=== PATIENT | male | born 1965 | race African-American/Black ===

== ENCOUNTER 2017-03-07 13:16 | Emergency (ER) | payer MEDICAID ==
[~2017-03-07] VITALS: Ht 170.2 cm; Wt 65.0 kg
[~2017-03-07 13:16] MED LIST: NONE REPORTED
[2017-03-07 13:20] VITALS: BP 132/85
== END 2017-03-07 14:32 | disposition left against medical advice (07) ==
LOC: ER 13:44
DX: Z53.21 Procedure and treatment not carried out due to patient leaving prior to being seen by health care provider (principal)

== ENCOUNTER 2017-05-22 00:25 | Emergency (ER) | payer MEDICAID ==
[~2017-05-22] VITALS: Ht 175.3 cm; Wt 75.0 kg
[2017-05-22 04:29] VITALS: BP 125/79
== END 2017-05-22 04:30 | disposition home or self-care (01) ==
LOC: ER 00:25
DX: R60.0 Localized edema (principal); F17.200 Nicotine dependence, unspecified, uncomplicated; F12.10 Cannabis abuse, uncomplicated; F16.10 Hallucinogen abuse, uncomplicated; Z87.81 Personal history of (healed) traumatic fracture
CPT/HCPCS: 99283; Z7610

== ENCOUNTER 2017-08-15 00:37 | Emergency (ER) | payer MEDICAID ==
[~2017-08-15] VITALS: Ht 175.3 cm; Wt 68.1 kg
[2017-08-15 06:25] VITALS: BP 113/71
== END 2017-08-15 06:30 | disposition home or self-care (01) ==
LOC: ER 01:00
DX: R10.9 Unspecified abdominal pain (principal); F16.10 Hallucinogen abuse, uncomplicated; F17.200 Nicotine dependence, unspecified, uncomplicated
CPT/HCPCS: 99283

== ENCOUNTER 2018-01-18 23:11 | Emergency (ER) | payer MEDICAID ==
[~2018-01-18] VITALS: Ht 175.3 cm; Wt 80.0 kg
[2018-01-19] MEDS ORDERED: SODIUM CHLORIDE 0.9% 1,000 ML IV ONE (03:43)
[2018-01-19 04:45] LABS: BASOPHILS % 1.1 % (0.0-2.0); HEMATOCRIT. 38.3 % (42.0-52.0); LYMPHOCYTES % 37.5 % (20.0-50.0); MEAN CORPUSCULAR HEMOGLOBIN 30.3 pg (28.0-32.0); MEAN CORPUSCULAR VOLUME 89.4 fL (80.0-94.0); MONOCYTES % 8.4 % (2.0-8.0); PLATELET 354 x1000/uL (130-400); RED BLOOD CELL COUNT 4.28 mill/uL (4.7-6.1); RED CELL DISTRIBUTION WIDTH 13.7 % (11.6-14.6)
[2018-01-19 04:52] LABS: CHLORIDE 107 mEq/L (98-107)
[2018-01-19 04:56] LABS: ETHANOL BLOOD 10 mg/dL
[2018-01-19 06:19] LABS: CLARITY URINE CLEAR (CLEAR); COLOR URINE YELLOW (YELLOW); KETONES URINE NEGATIVE (NEGATIVE); LEUKOCYTE ESTERASE URINE NEGATIVE (NEGATIVE); NITRITE URINE NEGATIVE (NEGATIVE); OCCULT BLOOD URINE NEGATIVE (NEGATIVE); PROTEIN URINE NEGATIVE (NEGATIVE); SPECIFIC GRAVITY URINE 1.006 (1.005-1.030); UROBILINOGEN URINE 0.2 E.U./dL (0.2-1.0)
[2018-01-19 06:43] LABS: *AMPHETAMINES SCREEN URINE NEGATIVE (NEGATIVE); *BARBITURATES SCREEN URINE NEGATIVE (NEGATIVE); *BENZODIAZEPINES SCREEN URINE NEGATIVE (NEGATIVE); *COCAINE SCREEN URINE NEGATIVE (NEGATIVE)
[2018-01-19 06:44] LABS: CANNABINOID URINE SCREEN PRESUMTIVE POSITIVE (NEGATIVE); METHADONE URINE SCREEN NEGATIVE (NEGATIVE); OPIATES URINE SCREEN NEGATIVE (NEGATIVE); PHENCYCLIDINE URINE SCREEN PRESUMTIVE POSITIVE (NEGATIVE)
[2018-01-19 11:23] VITALS: BP 124/79
== END 2018-01-19 11:24 | disposition home or self-care (01) ==
LOC: ER 23:11
DX: T40.991A Poisoning by other psychodysleptics [hallucinogens], accidental (unintentional), initial encounter (principal); T40.7X1A Poisoning by cannabis (derivatives), accidental (unintentional), initial encounter; G92 Toxic encephalopathy; F10.229 Alcohol dependence with intoxication, unspecified; Y90.0 Blood alcohol level of less than 20 mg/100 ml; Y92.488 Other paved roadways as the place of occurrence of the external cause
CPT/HCPCS: 36415; 80053; 80305; 80307; 80329; 81003; 82962; 83690; 85025; 99284; G0482; J7030

== ENCOUNTER 2018-01-23 03:19 | Emergency (ER) | payer MEDICAID ==
[~2018-01-23] VITALS: Ht 167.6 cm; Wt 68.0 kg
[2018-01-23] MEDS ORDERED: SODIUM CHLORIDE 0.9% 1,000 ML IV ONE (07:26)
[2018-01-23] MEDS ORDERED: TETANUS, DIPHTHERIA, PERTUSSIS VAC/PF 0.5ML (>7YR OLD) IM ONE (07:30)
[2018-01-23] MEDS ORDERED: BACITRACIN ZINC OINT UDPKT TOP ONE (07:30)
[2018-01-23] MEDS ORDERED: LIDOCAINE HCL/PF 1% 10 MG/ML 5ML VIAL IJ ONE (07:30)
[2018-01-23] MEDS ORDERED: ACETAMINOPHEN 325MG TABLET PO ONE (07:30)
[2018-01-23 09:30] VITALS: BP 122/89
== END 2018-01-23 09:54 | disposition left against medical advice (07) ==
LOC: ER 03:19
DX: S01.112A Laceration without foreign body of left eyelid and periocular area, initial encounter (principal); S00.83XA Contusion of other part of head, initial encounter; F10.20 Alcohol dependence, uncomplicated; Y90.9 Presence of alcohol in blood, level not specified; F99 Mental disorder, not otherwise specified; W01.0XXA Fall on same level from slipping, tripping and stumbling without subsequent striking against object, initial encounter; Y93.89 Activity, other specified; Y92.488 Other paved roadways as the place of occurrence of the external cause
CPT/HCPCS: 12011; 70450; 70486; 90471; 90715; 99285; J3490; J7030; Z7610

== ENCOUNTER 2018-05-11 16:19 | Emergency (ER) | payer SELFPAY ==
[~2018-05-11] VITALS: Ht 170.2 cm; Wt 90.0 kg
[2018-05-11 16:33] VITALS: BP 127/83
[2018-05-11] MEDS ORDERED: ONDANSETRON HCL 4MG/2ML INJ IV STA (18:05)
[2018-05-11] MEDS ORDERED: SODIUM CHLORIDE 0.9% 1,000 ML IV ONE (18:05)
[2018-05-11 18:54] LABS: BASOPHILS % 1.3 % (0.0-2.0); EOSINOPHILS % 5.1 % (0.0-5.0); HEMATOCRIT. 40.4 % (42.0-52.0); HEMOGLOBIN. 13.5 g/dL (14.0-18.0); LYMPHOCYTES % 30.4 % (20.0-50.0); MEAN CORPUSCULAR HEMOGLOBIN 30.5 pg (28.0-32.0); MEAN PLATELET VOLUME 8.5 fl (7.4-10.4); MONOCYTES % 9.8 % (2.0-8.0); NEUTROPHILS % 53.4 % (40.0-76.0); PLATELET 392 x1000/uL (130-400); RED BLOOD CELL COUNT 4.43 mill/uL (4.7-6.1); RED CELL DISTRIBUTION WIDTH 14.4 % (11.6-14.6)
[2018-05-11 18:59] LABS: CHLORIDE 107 mEq/L (98-107)
[2018-05-11 19:04] LABS: ETHANOL BLOOD < 10 mg/dL
[2018-05-11 19:23] LABS: CLARITY URINE CLEAR (CLEAR); COLOR URINE YELLOW (YELLOW); KETONES URINE NEGATIVE (NEGATIVE); LEUKOCYTE ESTERASE URINE NEGATIVE (NEGATIVE); NITRITE URINE NEGATIVE (NEGATIVE); OCCULT BLOOD URINE NEGATIVE (NEGATIVE); PROTEIN URINE NEGATIVE (NEGATIVE); SPECIFIC GRAVITY URINE 1.002 (1.005-1.030); UROBILINOGEN URINE 0.2 E.U./dL (0.2-1.0)
[2018-05-11 19:45] LABS: *AMPHETAMINES SCREEN URINE NEGATIVE (NEGATIVE); *BARBITURATES SCREEN URINE NEGATIVE (NEGATIVE); *COCAINE SCREEN URINE NEGATIVE (NEGATIVE); METHADONE URINE SCREEN NEGATIVE (NEGATIVE); OPIATES URINE SCREEN NEGATIVE (NEGATIVE); PHENCYCLIDINE URINE SCREEN PRESUMTIVE POSITIVE (NEGATIVE)
[2018-05-11 19:46] LABS: *BENZODIAZEPINES SCREEN URINE NEGATIVE (NEGATIVE); CANNABINOID URINE SCREEN PRESUMTIVE POSITIVE (NEGATIVE)
== END 2018-05-11 19:01 | disposition home or self-care (01) ==
LOC: ER 16:19
DX: R11.10 Vomiting, unspecified (principal); R05 Cough; F10.10 Alcohol abuse, uncomplicated; Y90.0 Blood alcohol level of less than 20 mg/100 ml; Z59.0 Homelessness
CPT/HCPCS: 36415; 80053; 80305; 81003; 85025; 99283; G0482; J7030

== ENCOUNTER 2018-06-07 14:43 | Emergency (ER) | payer SELFPAY | END 2018-06-07 15:36 | disposition left against medical advice (07) | LOC: ER 14:43 | DX: Z53.21 Procedure and treatment not carried out due to patient leaving prior to being seen by health care provider (principal) ==

== ENCOUNTER 2019-01-08 18:01 | Emergency (ER) | payer SELFPAY ==
[~2019-01-08] VITALS: Ht 180.3 cm; Wt 82.0 kg
[2019-01-08] MEDS ORDERED: SODIUM CHLORIDE 0.9% 1,000 ML IV ONE (18:45)
[2019-01-08 19:23] LABS: BASOPHILS % 0.7 % (0.0-2.0); EOSINOPHILS % 2.7 % (0.0-5.0); HEMATOCRIT. 41.7 % (42.0-52.0); HEMOGLOBIN. 14.3 g/dL (14.0-18.0); LYMPHOCYTES % 37.4 % (20.0-50.0); MEAN CORPUSCULAR HEMOGLOBIN 31.4 pg (28.0-32.0); MEAN CORPUSCULAR VOLUME 91.4 fL (80.0-94.0); MEAN PLATELET VOLUME 8.3 fl (7.4-10.4); MONOCYTES % 7.5 % (2.0-8.0); NEUTROPHILS % 51.7 % (40.0-76.0); PLATELET 328 x1000/uL (130-400); RED BLOOD CELL COUNT 4.57 mill/uL (4.7-6.1)
[2019-01-08 19:30] LABS: CHLORIDE 109 mEq/L (98-107)
[2019-01-08 19:36] LABS: ETHANOL BLOOD 90 mg/dL
[2019-01-08 21:30] VITALS: BP 124/74
== END 2019-01-08 21:30 | disposition home or self-care (01) ==
LOC: ER 18:17
DX: F10.129 Alcohol abuse with intoxication, unspecified (principal); Y90.4 Blood alcohol level of 80-99 mg/100 ml; F16.10 Hallucinogen abuse, uncomplicated
CPT/HCPCS: 36415; 80048; 80320; 85025; 96360; 99283; J7030; G0480

== ENCOUNTER 2019-04-01 15:58 | Emergency (ER) | payer SELFPAY ==
[~2019-04-01] VITALS: Ht 170.2 cm; Wt 64.0 kg
[2019-04-01] MEDS ORDERED: ONDANSETRON HCL 4MG/2ML INJ IV ONE (16:15)
[2019-04-01] MEDS ORDERED: FOLIC ACID 1 MG, THIAMINE HCL 100 MG, MVI, ADULT NO.1 10 ML in DEXTROSE 5% WATER 1,000 ML IV ONE ×4 (16:15)
[2019-04-01] MEDS ORDERED: LORAZEPAM 2MG/ML CPJ IM ONE (17:00)
[2019-04-01 17:01] LABS: BASOPHILS % 1.3 % (0.0-2.0); EOSINOPHILS % 4.7 % (0.0-5.0); HEMATOCRIT. 40.3 % (42.0-52.0); HEMOGLOBIN. 13.8 g/dL (14.0-18.0); LYMPHOCYTES % 42.2 % (20.0-50.0); MEAN CORPUSCULAR HEMOGLOBIN 30.9 pg (28.0-32.0); MEAN CORPUSCULAR VOLUME 90.2 fL (80.0-94.0); MEAN PLATELET VOLUME 8.5 fl (7.4-10.4); MONOCYTES % 6.7 % (2.0-8.0); NEUTROPHILS % 45.1 % (40.0-76.0); PLATELET 410 x1000/uL (130-400); RED BLOOD CELL COUNT 4.47 mill/uL (4.7-6.1); RED CELL DISTRIBUTION WIDTH 13.8 % (11.6-14.6)
[2019-04-01 17:06] LABS: CHLORIDE 108 mEq/L (98-107)
[2019-04-01 17:15] LABS: ETHANOL BLOOD 144 mg/dL
[2019-04-01 17:26] LABS: CLARITY URINE CLEAR (CLEAR); COLOR URINE YELLOW (YELLOW); KETONES URINE NEGATIVE (NEGATIVE); LEUKOCYTE ESTERASE URINE NEGATIVE (NEGATIVE); NITRITE URINE NEGATIVE (NEGATIVE); OCCULT BLOOD URINE NEGATIVE (NEGATIVE); PH URINE 5.5 (4.5-8.0); PROTEIN URINE NEGATIVE (NEGATIVE); SPECIFIC GRAVITY URINE 1.003 (1.005-1.030); UROBILINOGEN URINE 0.2 E.U./dL (0.2-1.0)
[2019-04-01 18:51] LABS: *AMPHETAMINES SCREEN URINE NEGATIVE (NEGATIVE); *BARBITURATES SCREEN URINE NEGATIVE (NEGATIVE)
[2019-04-01 18:52] LABS: *BENZODIAZEPINES SCREEN URINE NEGATIVE (NEGATIVE); *COCAINE SCREEN URINE NEGATIVE (NEGATIVE); CANNABINOID URINE SCREEN NEGATIVE (NEGATIVE); METHADONE URINE SCREEN NEGATIVE (NEGATIVE); OPIATES URINE SCREEN NEGATIVE (NEGATIVE); PHENCYCLIDINE URINE SCREEN PRESUMTIVE POSITIVE (NEGATIVE)
[2019-04-01 20:15] VITALS: BP 125/84
== END 2019-04-01 20:19 | disposition home or self-care (01) ==
LOC: ER 15:58
DX: G92 Toxic encephalopathy (principal); F10.20 Alcohol dependence, uncomplicated; F16.10 Hallucinogen abuse, uncomplicated; E16.2 Hypoglycemia, unspecified; Y90.6 Blood alcohol level of 120-199 mg/100 ml
CPT/HCPCS: 36415; 70450; 71045; 80053; 80305; 80307; 80320; 80329; 81003; 82962; 84484; 85025; 93005; 96365; 96372; 96375; 99284; J2060; J2405; J3411; J3490; J7070; G0480

== ENCOUNTER 2019-06-26 07:56 | Emergency (ER) | payer SELFPAY ==
[~2019-06-26] VITALS: Ht 175.3 cm; Wt 64.0 kg
[2019-06-26 09:28] LABS: BASOPHILS % 0.4 % (0.0-2.0); EOSINOPHILS % 1.2 % (0.0-5.0); HEMATOCRIT. 40.7 % (42.0-52.0); HEMOGLOBIN. 14.4 g/dL (14.0-18.0); LYMPHOCYTES % 10.7 % (20.0-50.0); MEAN CORPUSCULAR HEMOGLOBIN 31.8 pg (28.0-32.0); MEAN CORPUSCULAR VOLUME 90.1 fL (80.0-94.0); MEAN PLATELET VOLUME 8.2 fl (7.4-10.4); MONOCYTES % 6.3 % (2.0-8.0); NEUTROPHILS % 81.4 % (40.0-76.0); PLATELET 315 x1000/uL (130-400); RED BLOOD CELL COUNT 4.52 mill/uL (4.7-6.1); RED CELL DISTRIBUTION WIDTH 13.9 % (11.6-14.6)
[2019-06-26 09:37] LABS: CHLORIDE 104 mEq/L (98-107)
[2019-06-26 09:41] LABS: ETHANOL BLOOD < 10 mg/dL
[2019-06-26 14:03] VITALS: BP 115/84
== END 2019-06-26 14:15 | disposition home or self-care (01) ==
LOC: ER 07:56
DX: R51 Headache (principal); I10 Essential (primary) hypertension; F16.10 Hallucinogen abuse, uncomplicated; W18.30XA Fall on same level, unspecified, initial encounter; Y93.89 Activity, other specified; Y92.89 Other specified places as the place of occurrence of the external cause; Y99.8 Other external cause status
CPT/HCPCS: 36415; 80053; 80320; 82962; 85025; 99284; G0480

== ENCOUNTER 2019-06-27 12:42 | Emergency (ER) | payer SELFPAY ==
[~2019-06-27] VITALS: Ht 182.9 cm; Wt 73.0 kg
[2019-06-27] MEDS ORDERED: HALOPERIDOL LACTATE 5MG/ML VIAL IM STA (13:14)
[2019-06-27 13:51] LABS: HEMATOCRIT. 38.4 % (42.0-52.0); HEMOGLOBIN. 13.3 g/dL (14.0-18.0); MEAN CORPUSCULAR HEMOGLOBIN 31.4 pg (28.0-32.0); MEAN CORPUSCULAR VOLUME 90.3 fL (80.0-94.0); RED BLOOD CELL COUNT 4.25 mill/uL (4.7-6.1); RED CELL DISTRIBUTION WIDTH 13.9 % (11.6-14.6)
[2019-06-27 13:58] LABS: CHLORIDE 108 mEq/L (98-107)
[2019-06-27 14:03] LABS: ETHANOL BLOOD < 10 mg/dL
[2019-06-27 14:26] LABS: PLATELET ESTIMATE NORMAL
[2019-06-27 14:27] LABS: PLATELET 250 x1000/uL (130-400)
[2019-06-27 14:28] LABS: MEAN PLATELET VOLUME 9.6 fl (7.4-10.4)
[2019-06-27 15:00] LABS: CLARITY URINE CLEAR (CLEAR); COLOR URINE DARK YELLOW (YELLOW); KETONES URINE TRACE (NEGATIVE); LEUKOCYTE ESTERASE URINE 1+ (NEGATIVE); NITRITE URINE NEGATIVE (NEGATIVE); OCCULT BLOOD URINE NEGATIVE (NEGATIVE); PH URINE 5.5 (4.5-8.0); PROTEIN URINE TRACE (NEGATIVE); SPECIFIC GRAVITY URINE 1.026 (1.005-1.030)
[2019-06-27 15:38] LABS: *AMPHETAMINES SCREEN URINE NEGATIVE (NEGATIVE); *BARBITURATES SCREEN URINE NEGATIVE (NEGATIVE); *BENZODIAZEPINES SCREEN URINE PRESUMTIVE POSITIVE (NEGATIVE); *COCAINE SCREEN URINE NEGATIVE (NEGATIVE)
[2019-06-27 15:39] LABS: CANNABINOID URINE SCREEN PRESUMTIVE POSITIVE (NEGATIVE); METHADONE URINE SCREEN NEGATIVE (NEGATIVE); OPIATES URINE SCREEN NEGATIVE (NEGATIVE); PHENCYCLIDINE URINE SCREEN PRESUMTIVE POSITIVE (NEGATIVE)
[2019-06-28 09:46] VITALS: BP 120/75
== END 2019-06-28 09:49 | disposition home or self-care (01) ==
LOC: ER 12:42
DX: T40.991A Poisoning by other psychodysleptics [hallucinogens], accidental (unintentional), initial encounter (principal); F23 Brief psychotic disorder; I10 Essential (primary) hypertension; F12.10 Cannabis abuse, uncomplicated; F17.210 Nicotine dependence, cigarettes, uncomplicated; Y92.018 Other place in single-family (private) house as the place of occurrence of the external cause
CPT/HCPCS: 36415; 70450; 80053; 80305; 80307; 80320; 80329; 81003; 82962; 85025; 99285; J1630; G0480

== ENCOUNTER 2019-07-16 02:20 | Emergency (ER) | payer SELFPAY ==
[~2019-07-16] VITALS: Ht 167.6 cm; Wt 75.0 kg
[2019-07-16 07:30] VITALS: BP 135/83
== END 2019-07-16 09:04 | disposition left against medical advice (07) ==
LOC: ER 02:20
DX: F10.129 Alcohol abuse with intoxication, unspecified (principal); F16.10 Hallucinogen abuse, uncomplicated; Y90.9 Presence of alcohol in blood, level not specified; Z59.0 Homelessness
CPT/HCPCS: 99283

== ENCOUNTER 2019-07-17 10:35 | Emergency (ER) | payer SELFPAY ==
[~2019-07-17] VITALS: Ht 167.6 cm; Wt 71.0 kg
[2019-07-17] MEDS ORDERED: ACETAMINOPHEN 325MG TABLET PO STA (11:09)
[2019-07-17 12:45] VITALS: BP 128/78
== END 2019-07-17 13:30 | disposition home or self-care (01) ==
LOC: ER 10:52
DX: S09.90XA Unspecified injury of head, initial encounter (principal); E11.9 Type 2 diabetes mellitus without complications; V19.9XXA Pedal cyclist (driver) (passenger) injured in unspecified traffic accident, initial encounter; Y93.89 Activity, other specified; Y92.89 Other specified places as the place of occurrence of the external cause; Y99.8 Other external cause status
CPT/HCPCS: 99284

== ENCOUNTER 2019-07-20 21:26 | Emergency (ER) | payer OTHER ==
[~2019-07-20] VITALS: Ht 167.6 cm; Wt 77.0 kg
[2019-07-20] MEDS ORDERED: TETANUS, DIPHTHERIA, PERTUSSIS VAC/PF 0.5ML (>7YR OLD) IM ONE (23:15)
[2019-07-20 23:22] VITALS: BP 130/90
[2019-07-20 23:25] LABS: CHLORIDE 107 mEq/L (98-107)
[2019-07-20 23:27] LABS: HEMATOCRIT 39.1 % (42.0-52.0); HEMOGLOBIN 13.5 g/dL (14.0-18.0); MEAN CORPUSCULAR HEMOGLOBIN 31.8 pg (28.0-32.0); PLATELET 358 x1000/uL (130-400); RED BLOOD CELL COUNT 4.24 mill/uL (4.7-6.1); RED CELL DISTRIBUTION WIDTH 14.2 % (11.6-14.6)
[2019-07-20 23:28] LABS: *AMPHETAMINES SCREEN URINE NEGATIVE (NEGATIVE); *BARBITURATES SCREEN URINE NEGATIVE (NEGATIVE); *BENZODIAZEPINES SCREEN URINE NEGATIVE (NEGATIVE); *COCAINE SCREEN URINE NEGATIVE (NEGATIVE); ETHANOL BLOOD 100 mg/dL; METHADONE URINE SCREEN NEGATIVE (NEGATIVE)
[2019-07-20 23:29] LABS: CANNABINOID URINE SCREEN NEGATIVE (NEGATIVE); OPIATES URINE SCREEN NEGATIVE (NEGATIVE); PHENCYCLIDINE URINE SCREEN PRESUMTIVE POSITIVE (NEGATIVE)
== END 2019-07-21 01:28 | disposition home or self-care (01) ==
LOC: ER 21:26
DX: S00.83XA Contusion of other part of head, initial encounter (principal); S00.212A Abrasion of left eyelid and periocular area, initial encounter; E11.9 Type 2 diabetes mellitus without complications; F16.10 Hallucinogen abuse, uncomplicated; F10.10 Alcohol abuse, uncomplicated; F17.210 Nicotine dependence, cigarettes, uncomplicated; Y90.9 Presence of alcohol in blood, level not specified; W01.0XXA Fall on same level from slipping, tripping and stumbling without subsequent striking against object, initial encounter; Y93.89 Activity, other specified; Y92.488 Other paved roadways as the place of occurrence of the external cause
CPT/HCPCS: 36415; 80053; 80305; 80320; 85027; 90715; 99284; G0480

== ENCOUNTER 2019-07-26 21:55 | Emergency (ER) | payer SELFPAY ==
[~2019-07-26] VITALS: Ht 172.7 cm; Wt 77.0 kg
[2019-07-27] MEDS ORDERED: METOCLOPRAMIDE HCL 10MG/2ML VIAL IV ONE (01:30)
[2019-07-27] MEDS ORDERED: DICYCLOMINE HCL 10MG/ML 2ML AMP IM ONE (01:30)
[2019-07-27 10:24] VITALS: BP 130/80
== END 2019-07-27 10:25 | disposition home or self-care (01) ==
LOC: ER 21:55
DX: S00.01XA Abrasion of scalp, initial encounter (principal); M25.552 Pain in left hip; E11.9 Type 2 diabetes mellitus without complications; I10 Essential (primary) hypertension; F10.10 Alcohol abuse, uncomplicated; W18.30XA Fall on same level, unspecified, initial encounter; Y93.89 Activity, other specified; Y92.89 Other specified places as the place of occurrence of the external cause; Y99.8 Other external cause status; Y90.9 Presence of alcohol in blood, level not specified
CPT/HCPCS: 73502; 99284

== ENCOUNTER 2019-08-02 16:06 | Emergency (ER) | payer MEDICAID, OTHER ==
[~2019-08-02] VITALS: Ht 165.1 cm; Wt 65.0 kg
[2019-08-04] MEDS ORDERED: ACETAMINOPHEN 325MG TABLET PO ONE (04:15)
[2019-08-05 11:30] VITALS: BP 118/70
== END 2019-08-05 14:00 | disposition left against medical advice (07) ==
LOC: ER 16:06
DX: Z59.0 Homelessness (principal); F15.10 Other stimulant abuse, uncomplicated; F16.10 Hallucinogen abuse, uncomplicated; I10 Essential (primary) hypertension; E11.9 Type 2 diabetes mellitus without complications
CPT/HCPCS: 99285

== ENCOUNTER 2019-08-26 13:31 | Emergency (ER) | payer MEDICAID ==
[~2019-08-26] VITALS: Ht 175.3 cm; Wt 70.0 kg
[2019-08-26] MEDS ORDERED: SODIUM CHLORIDE 0.9% 1,000 ML IV ONE (13:59)
[2019-08-26 14:40] LABS: BASOPHILS % 1.3 % (0.0-2.0); EOSINOPHILS % 3.7 % (0.0-5.0); HEMATOCRIT. 24.5 % (42.0-52.0); HEMOGLOBIN. 7.6 g/dL (14.0-18.0); LYMPHOCYTES % 34.1 % (20.0-50.0); MEAN CORPUSCULAR HEMOGLOBIN 29.6 pg (28.0-32.0); MEAN CORPUSCULAR VOLUME 95.1 fL (80.0-94.0); MONOCYTES % 5.7 % (2.0-8.0); NEUTROPHILS % 55.2 % (40.0-76.0); PLATELET 245 x1000/uL (130-400); RED BLOOD CELL COUNT 2.58 mill/uL (4.7-6.1); RED CELL DISTRIBUTION WIDTH 14.1 % (11.6-14.6)
[2019-08-26 16:44] LABS: CHLORIDE 110 mEq/L (98-107)
[2019-08-26 16:49] LABS: ETHANOL BLOOD 10 mg/dL
[2019-08-26 17:14] LABS: CLARITY URINE CLEAR (CLEAR); COLOR URINE YELLOW (YELLOW); KETONES URINE NEGATIVE (NEGATIVE); LEUKOCYTE ESTERASE URINE NEGATIVE (NEGATIVE); NITRITE URINE NEGATIVE (NEGATIVE); OCCULT BLOOD URINE NEGATIVE (NEGATIVE); PROTEIN URINE NEGATIVE (NEGATIVE); SPECIFIC GRAVITY URINE 1.005 (1.005-1.030); UROBILINOGEN URINE 0.2 E.U./dL (0.2-1.0)
[2019-08-26 17:23] LABS: *AMPHETAMINES SCREEN URINE NEGATIVE (NEGATIVE); *BARBITURATES SCREEN URINE NEGATIVE (NEGATIVE); *BENZODIAZEPINES SCREEN URINE NEGATIVE (NEGATIVE); *COCAINE SCREEN URINE NEGATIVE (NEGATIVE); METHADONE URINE SCREEN NEGATIVE (NEGATIVE); OPIATES URINE SCREEN NEGATIVE (NEGATIVE); PHENCYCLIDINE URINE SCREEN PRESUMTIVE POSITIVE (NEGATIVE)
[2019-08-26 17:24] LABS: CANNABINOID URINE SCREEN NEGATIVE (NEGATIVE)
[2019-08-26 18:21] VITALS: BP 135/80
[2019-08-26] MEDS ORDERED: FOLIC ACID 1 MG, THIAMINE HCL 100 MG, MVI, ADULT NO.1 10 ML in DEXTROSE 5% WATER 1,000 ML IV SCH ×4 (18:30)
[2019-08-26] MEDS ORDERED: ACETAMINOPHEN 325MG TABLET PO PRN (18:30)
[2019-08-26] MEDS ORDERED: LORAZEPAM 2MG/ML CPJ IV PRN (18:30)
[2019-08-26] MEDS ORDERED: ONDANSETRON HCL 4MG/2ML INJ IV PRN (18:30)
[2019-08-26 18:49] LABS: TOTAL IRON BINDING CAPACITY 236 ug/dL (250-450)
== END 2019-08-26 18:44 | disposition left against medical advice (07) ==
LOC: ER 13:42 → EDBEDREQTM 17:08 → EDBEDREQ 17:08 → ER 18:44 → CANBEDREQ 19:45
DX: G93.40 Encephalopathy, unspecified (principal); R41.82 Altered mental status, unspecified; E11.9 Type 2 diabetes mellitus without complications; I10 Essential (primary) hypertension
CPT/HCPCS: 36415; 70450; 71045; 80053; 80305; 80307; 80320; 80329; 81003; 82728; 82962; 83540; 83550; 84484; 85025; 93005; 96360; 99285; J7030; G0480

== ENCOUNTER 2020-05-18 11:07 | Emergency (ER) | payer MEDICAID ==
[~2020-05-18] VITALS: Ht 167.6 cm; Wt 68.0 kg
[2020-05-18] MEDS ORDERED: KETOROLAC 30MG/ML VIAL IM ONE (11:15)
[2020-05-18 11:41] VITALS: BP 145/86
== END 2020-05-18 12:42 | disposition home or self-care (01) ==
LOC: ER 11:16
DX: M79.10 Myalgia, unspecified site (principal); E11.9 Type 2 diabetes mellitus without complications; I10 Essential (primary) hypertension
CPT/HCPCS: 93005; 96372; 99283; J1885; Z7610